=== PATIENT | female | born 1935 | race African-American/Black ===

== ENCOUNTER 2019-10-28 10:18 | Emergency (ER) | payer OTHER ==
[~2019-10-28] VITALS: Ht 167.6 cm; Wt 50.0 kg
[2019-10-28 13:58] LABS: HEMATOCRIT. 28.4 % (36.0-48.0); HEMOGLOBIN. 9.1 g/dL (12.0-16.0); MEAN CORPUSCULAR HEMOGLOBIN 22.5 pg (28.0-32.0); MEAN CORPUSCULAR VOLUME 70.3 fL (81.0-99.0); MEAN PLATELET VOLUME 6.9 fl (7.4-10.4); PLATELET 344 x1000/uL (130-400); RED BLOOD CELL COUNT 4.04 mill/uL (4.2-5.4); RED CELL DISTRIBUTION WIDTH 17.6 % (11.6-14.6)
[2019-10-28 14:03] LABS: CHLORIDE 106 mEq/L (98-107)
[2019-10-28 14:08] LABS: ETHANOL BLOOD < 10 mg/dL
[2019-10-28 14:17] LABS: PLATELET ESTIMATE NORMAL
[2019-10-28] MEDS ORDERED: SODIUM CHLORIDE 0.9% 1,000 ML IV ONE ×2 (15:16→15:57)
[2019-10-28 15:46] LABS: CLARITY URINE TURBID (CLEAR); COLOR URINE YELLOW (YELLOW); KETONES URINE 2+ (NEGATIVE); LEUKOCYTE ESTERASE URINE 3+ (NEGATIVE); NITRITE URINE POSITIVE (NEGATIVE); OCCULT BLOOD URINE 2+ (NEGATIVE); PH URINE 5.5 (4.5-8.0); PROTEIN URINE 1+ (NEGATIVE); SPECIFIC GRAVITY URINE 1.017 (1.005-1.030)
[2019-10-28] MEDS ORDERED: CEFTRIAXONE 1 G PREMIX 50 ML IV NR (15:57)
[2019-10-28 16:05] LABS: CREATINE KINASE 275 IU/L (26-192)
[2019-10-28 16:15] LABS: *AMPHETAMINES SCREEN URINE NEGATIVE (NEGATIVE); *BARBITURATES SCREEN URINE NEGATIVE (NEGATIVE); *BENZODIAZEPINES SCREEN URINE NEGATIVE (NEGATIVE)
[2019-10-28 16:16] LABS: *COCAINE SCREEN URINE NEGATIVE (NEGATIVE); CANNABINOID URINE SCREEN NEGATIVE (NEGATIVE); METHADONE URINE SCREEN NEGATIVE (NEGATIVE); OPIATES URINE SCREEN NEGATIVE (NEGATIVE); PHENCYCLIDINE URINE SCREEN NEGATIVE (NEGATIVE)
[2019-10-28 21:10] VITALS: BP 144/70
== END 2019-10-28 21:10 | disposition short-term general hospital (02) ==
LOC: ER 10:18 → CANBEDREQ 14:50 → ER 21:10
DX: N39.0 Urinary tract infection, site not specified (principal); R55 Syncope and collapse; R41.82 Altered mental status, unspecified
CPT/HCPCS: 36415; 70450; 71045; 80053; 80305; 80320; 81003; 82550; 83605; 83880; 84484; 85025; 87040; 87077; 87086; 87186; 93005; 96365; 99285; J0696; J7030; G0480